=== PATIENT | male | born 1960 | race Caucasian/White ===

== ENCOUNTER 2022-04-10 23:42 | Emergency (ER) | payer OTHER ==
[~2022-04-10] VITALS: Ht 185.4 cm; Wt 115.9 kg
[2022-04-11] MEDS ORDERED: normal saline 1000ML IV soln IVB ONE (00:25)
[2022-04-11] MEDS ORDERED: glucagon, human recombinant 1mg kit IV ONE (00:25)
[2022-04-11] MEDS ORDERED: ondansetron/PF 4mg/2ml inj IV ONE (00:25)
[2022-04-11] MEDS ORDERED: LORazepam 2 mg/ml vial IV ONE ×2 (00:25→03:00)
[2022-04-11] MEDS ORDERED: nitroGLYCERIN 0.4mg SUBLingual tab SL PRN ×4 (01:10→03:50)
[2022-04-11] MEDS ORDERED: glucagon, human recombinant 1mg kit IM ONE (03:00)
[2022-04-11] MEDS ORDERED: LIDOcaine Viscous 15ml cup ONE (07:04)
[2022-04-11] MEDS ORDERED: MIDAZolam 1 MG/ML 5ML VIAL ONE (07:04)
[2022-04-11] MEDS ORDERED: fentaNYL/PF 50MCG/1 ML 2ML syringe ONE (07:04)
[2022-04-11 07:16] VITALS: BP 147/86
[2022-04-11 08:50] VITALS: BP 143/83
[2022-04-11 09:00] VITALS: BP 134/73
[2022-04-11 09:10] VITALS: BP 126/75
[2022-04-11 09:20] VITALS: BP 130/68
[2022-04-11 10:52] VITALS: BP 143/94
== END 2022-04-11 10:53 | disposition home or self-care (01) ==
LOC: ER 23:43
DX: T18.108A Unspecified foreign body in esophagus causing other injury, initial encounter (principal); K21.9 Gastro-esophageal reflux disease without esophagitis; E03.9 Hypothyroidism, unspecified; X58.XXXA Exposure to other specified factors, initial encounter; Y93.89 Activity, other specified; Y92.89 Other specified places as the place of occurrence of the external cause; Y99.8 Other external cause status
CPT/HCPCS: 43239; 43247; 96361; 96372; 96374; 96375; 96376; 99152; 99153; 99285; C1769; C1773; J1610; J2060; J2250; J2405; J3010; J7030; Z7512; A4620; C1889